=== PATIENT | male | born 1950 | race Caucasian/White ===

== ENCOUNTER → 2016-07-21 | Outpatient (CLI) | payer OTHER ==
[~2016-07-21] MED LIST: ASPI81TA2 PO; LOSA100T44 PO; MELO15TA12 PO; MULT1CAP32 PO; NEBI10TA PO; OMEG-34 PO; ONDA4TAB4 PO; OXYC1TAB8 PO; PANT40TA PO; PHEN-742 PO; SIMV40TA5 PO
--- NOTE | 2016-07-21 15:23 | DI ---
Indication: ITS.REASON: M54.5 LOW BACK PAIN and bilateral leg pain for several months. No reported trauma. PROCEDURE: MRI LUMBAR SPINE W/O CONTRAST: Encounter: Initial Comparison: None Technique: Multiplanar multisequence MR imaging of the lumbar spine was performed without contrast. Findings: Alignment of the lumbar spine is within normal limits. No acute fracture identified. Bone marrow signal intensity is normal. Conus medullaris terminates normally at L1. The paraspinal soft tissues are within normal limits. Segmental analysis: L1-L2: Mild disk bulging without central canal stenosis. Mild degenerative facet disease contributing to minimal left neural foraminal narrowing. No right foraminal stenosis. L2-L3: No focal central protrusion or central canal stenosis. Slight lateral bulging with degenerative facet change. No significant neural foraminal stenosis. L3-L4: Mild annular disk bulge with degenerative facet hypertrophy contributes to minimal central canal narrowing. There is also mild right and mild to moderate left neural foraminal stenosis. L4-L5: Degenerative facet hypertrophy with a central disk protrusion contributes to moderate to severe central canal narrowing and compression of the thecal sac. Additionally there is mild right neural foraminal stenosis. No significant left foraminal narrowing. L5-S1: No focal disk protrusion or central canal stenosis. Right lateral disk osteophyte complex contributing to mild right neural foraminal narrowing, abutting the exiting L5 nerve root but not displacing it. No significant left foraminal narrowing. Impression: Moderate to severe central canal stenosis at L4-L5 with additional areas of neural foraminal narrowing as above. .
== END ==
LOC: IMA.MDS 13:55
PROVIDERS: ATTEND Physician Assistant
DX: M48.06 Spinal stenosis, lumbar region (principal); M54.5 Low back pain; M54.17 Radiculopathy, lumbosacral region